=== PATIENT | female | born 1980 | race American Indian/Alaskan Native ===

== ENCOUNTER 2020-04-21 17:18 | Emergency (ER) | payer OTHER ==
[2020-04-21 17:38] VITALS: BP 130/88
--- NOTE | 2020-04-21 17:43 | Event Note ---
ED Screening Note Date of service: 04/21/20 Time: 17:39 ED Screening Note: Patient complains of right thigh pain and swelling and headache and dizziness after a fall injury 2 days ago Denies loss of consciousness No cervical tenderness on exam This initial assessment/diagnostic orders/clinical plan/treatment(s) is/are subject to change based on patients health status, clinical progression and re- assessment by fellow clinical providers in the ED. Further treatment and workup at subsequent clinical providers discretion. Patient/guardian urged not to elope from the ED as their condition may be serious if not clinically assessed and managed. Initial orders include: CT face and head
--- NOTE | 2020-04-21 18:22 | Cat Scan Report ---
. CT head/brain wo con INDICATION / CLINICAL INFORMATION: 39 years Female; Head trauma, dizziness and headache. TECHNIQUE: Routine CT head without contrast. All CT scans at this location are performed using CT dos e reduction for ALARA by means of automated exposure control. COMPARISON: None. FINDINGS: BRAIN / INTRACRANIAL CONTENTS: No acute hemorrhage, mass effect, midline shift, hydrocephalus, or acu te, large territorial infarct. No signs of significant atrophy or chronic infarct. No significant whi te matter abnormality seen. CRANIOCERVICAL JUNCTION: No significant abnormality. 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 SINUSES / MASTOIDS: Visualized paranasal sinuses and mastoid air cells are essentially clear. ADDITIONAL FINDINGS: None. IMPRESSION: 1. No focal mass, hemorrhage, hydrocephalus, or acute, large territorial infarct. Signer Name: Irving Rasheed MD, III Signed: 04/21/2020 6:17 PM Workstation Name: [email or web address]
--- NOTE | 2020-04-21 18:25 | Cat Scan Report ---
CT facial bones wo con INDICATION / CLINICAL INFORMATION: 39 years Female; MAIN. TECHNIQUE: Thin cut axial images obtained. Sagittal and coronal reconstructions performed. All CT scans at this location are performed using CT dose reduction for ALARA by means of automated exposure control. COMPARISON: None available. FINDINGS: No significant soft tissue swelling appreciated. No signs of underlying facial bone fracture identified. Mild mucosal thickening seen in the ethmoids. Minimal mucosal thickening seen along the floor the lef t maxillary antrum. Remainder of the visualized paranasal sinuses, mastoid air cells, and middle ear cavities are clear. 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 Bilateral temporomandibular joint disease suggested, as evidenced by mild flattening of the condylar head with anterior spurring, bilaterally. IMPRESSION: 1. No definitive signs of acute bony facial trauma. Signer Name: Irving Rasheed MD, III Signed: 04/21/2020 6:21 PM Workstation Name: [employer] [place] [id number]
--- NOTE | 2020-04-21 23:10 | Emergency Department Report ---
HPI - General Chief Complaint: Head Injury PUI?: No Time Seen by Provider: 04/21/20 17:38 - HPI HPI: Room 36 The patient is a 39-year-old female present with a chief complaint of head injury. The patient states 3 days ago she fell and struck her face on a piece of furniture. Patient denies loss of consciousness. Patient states since the fall she has had occasional dizzy spell. Patient denies nausea/vomiting or fever. Patient states she noticed redness of her skin sclera in the right eye. Patient gives her headache a score of 6/10. The patient also mentions anxiety at work and is requesting a referral to a facility where she can speak to someone about this as an outpatient. Patient denies suicidal or homicidal ideation. The patient states she does not wish to have blood work drawn at this time because she would like to go home ED Past Medical Hx - Past Medical History Previous Medical History?: No - Surgical History Past Surgical History?: No - Family History Family history: no significant - Social History Smoking Status: Former Smoker (None x1 week) Substance Use Type: None (Denies illicit drug use) ED Review of Systems ROS: Stated complaint: FAINT/DIZZY/BLURR VISION Other details as noted in HPI Constitutional: denies: fever Eyes: other (Right subconjunctival hemorrhage) ENT: denies: throat pain Respiratory: no symptoms reported Cardiovascular: denies: chest pain Endocrine: no symptoms reported Gastrointestinal: denies: abdominal pain, nausea, vomiting Genitourinary: denies: dysuria Musculoskeletal: denies: back pain Neurological: headache Physical Exam - Physical Exam Vital Signs: Vital Signs 04/21/20 17:37 Temperature 98.7 F Pulse Rate 78 Respiratory 18 Rate Blood Pressure 130/88 [Right] O2 Sat by Pulse 97 Oximetry Physical Exam: GENERAL: The patient is well-developed well-nourished female lying on stretcher not appearing to be in acute distress. [] HEENT: Normocephalic. Atraumatic. Extraocular motions are intact. Prosthetic left eye. Right eye has subconjunctival hemorrhage in the 7 to 9 o'clock position of the sclera patient has moist mucous membranes. NECK: Supple. Trachea midline CHEST/LUNGS: Clear to auscultation. There is no respiratory distress noted. HEART/CARDIOVASCULAR: Regular. There is no tachycardia. There is no gallop rub or murmur. ABDOMEN: Abdomen is soft, nontender. Patient has normal bowel sounds. There is no abdominal distention. SKIN: There is no rash. There is no edema. There is no diaphoresis. NEURO: The patient is awake, alert, and oriented. The patient is cooperative. The patient has no focal neurologic deficits. The patient has normal speech. Cranial nerves II through XII grossly intact MUSCULOSKELETAL: There is no evidence of acute injury. ED Course Vital Signs 04/21/20 17:37 Temperature 98.7 F Pulse Rate 78 Respiratory 18 Rate Blood Pressure 130/88 [Right] O2 Sat by Pulse 97 Oximetry ED Medical Decision Making - Radiology Data Radiology results: report reviewed (CT head, CT face), image reviewed (CT head, CT face) Findings [facility] [address] [place] [address] Cat Scan Report Signed Patient: ANGEL SHEIKH MR#: [id number] : 1980 Acct:[id number] Age/Sex: 39 / F ADM Date: 04/21/20 Loc: ED Attending Dr: Ordering Physician: CAROLEE MONSIVAIS Date of Service: 04/21/20 Procedure(s): CT head/brain wo con Accession Number(s): [id number] cc: CAROLEE MONSIVAIS . CT head/brain wo con INDICATION / CLINICAL INFORMATION: 39 years Female; Head trauma, dizziness and headache. TECHNIQUE: Routine CT head without contrast. All CT scans at this location are performed using CT dose reduction for ALARA by means of automated exposure control. COMPARISON: None. FINDINGS: BRAIN / INTRACRANIAL CONTENTS: No acute hemorrhage, mass effect, midline shift, hydrocephalus, or acute, large territorial infarct. No signs of significant atrophy or chronic infarct. No significant white matter abnormality seen. CRANIOCERVICAL JUNCTION: No significant abnormality. 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 SINUSES / MASTOIDS: Visualized paranasal sinuses and mastoid air cells are essentially clear. ADDITIONAL FINDINGS: None. IMPRESSION: 1. No focal mass, hemorrhage, hydrocephalus, or acute, large territorial infarct. Signer Name: Irving Rasheed MD, III Signed: 04/21/2020 6:17 PM Workstation Name: [email or web address] Transcribed By: HR Dictated By: Irving Rasheed MD Electronically Authenticated By: Irving Rasheed MD Signed Date/Time: 04/21/201816 DD/ 15 TD/TT: Findings [facility] [address] [place] [address] Cat Scan Report Signed Patient: ANGEL SHEIKH MR#: [id number] : 1980 Acct:[id number] Age/Sex: 39 / F ADM Date: 04/21/20 Loc: ED Attending Dr: Ordering Physician: CAROLEE MONSIVAIS Date of Service: 04/21/20 Procedure(s): CT facial bones wo con Accession Number(s): [id number] cc: CAROLEE MONSIVAIS CT facial bones wo con INDICATION / CLINICAL INFORMATION: 39 years Female; MAIN. TECHNIQUE: Thin cut axial images obtained. Sagittal and coronal reconstructions performed. All CT scans at this location are performed using CT dose reduction for ALARA by means of automated exposure control. COMPARISON: None available. FINDINGS: No significant soft tissue swelling appreciated. No signs of underlying facial bone fracture identified. Mild mucosal thickening seen in the ethmoids. Minimal mucosal thickening seen along the floor the left maxillary antrum. Remainder of the visualized paranasal sinuses, mastoid air cells, and middle ear cavities are clear. 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 Bilateral temporomandibular joint disease suggested, as evidenced by mild flattening of the condylar head with anterior spurring, bilaterally. IMPRESSION: 1. No definitive signs of acute bony facial trauma. Signer Name: Irving Rasheed MD, III Signed: 04/21/2020 6:21 PM Workstation Name: [id number] Transcribed By: HR Dictated By: Irving Rasheed MD Electronically Authenticated By: Irving Rasheed MD Signed Date/Time: 04/21/201820 DD/ 16 TD/TT: - Differential Diagnosis Close head injury, subconjunctival hemorrhage, intracranial hemorrhage, fac Critical care attestation.: If time is entered above; I have spent that time in minutes in the direct care of this critically ill patient, excluding procedure time. ED Disposition Clinical Impression: Closed head injury, Subconjunctival hemorrhage Disposition: -01 TO HOME OR SELFCARE Is pt being admited?: No Does the pt Need Aspirin: No Condition: Stable Instructions: Subconjunctival Hemorrhage Additional Instructions: Return to the emergency department should you develop worsening symptoms, inability to tolerate food or liquids, high fever or any other concerns Referrals: [facility] [Outside] - 3-5 Days JENNIFER BLACK MD [Staff Physician] - 3-5 Days (Dr. Black is a primary physician. Please follow-up with him to be established as a patient) Time of Disposition: 23:13
== END 2020-04-21 23:20 | disposition home or self-care (01) ==
LOC: ED 17:18
DX: S09.90XA Unspecified injury of head, initial encounter (principal); H11.30 Conjunctival hemorrhage, unspecified eye; Z87.891 Personal history of nicotine dependence; W22.8XXA Striking against or struck by other objects, initial encounter; Y93.89 Activity, other specified; Y92.89 Other specified places as the place of occurrence of the external cause; Y99.8 Other external cause status
CPT/HCPCS: 70450; 70486